=== PATIENT | male | born 1960 | race Caucasian/White ===

== ENCOUNTER 2017-12-21 17:47 | Emergency (ER) | payer OTHER ==
[2017-12-21 17:56] VITALS: RESP 18
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
[2017-12-21] MEDS ORDERED: NAPROXEN 250 MG TAB PO STA (18:54)
[2017-12-21 19:17] VITALS: BP 138/84; PULSE 77; TEMP 97.1
== END 2017-12-21 19:14 | disposition home or self-care (01) ==
LOC: EC 17:47
DX: S06.0X9A Concussion with loss of consciousness of unspecified duration, initial encounter (principal); S16.1XXA Strain of muscle, fascia and tendon at neck level, initial encounter; J32.0 Chronic maxillary sinusitis; F17.200 Nicotine dependence, unspecified, uncomplicated; V89.2XXA Person injured in unspecified motor-vehicle accident, traffic, initial encounter; Y92.410 Unspecified street and highway as the place of occurrence of the external cause
CPT/HCPCS: 70450; 72125; 99284